=== PATIENT | female | born 1980 | race Caucasian/White ===

== ENCOUNTER 2018-09-22 23:48 | Inpatient (IN) | payer MEDICAID ==
[2018-09-23 03:06] VITALS: BP 126/87
[2018-09-23] MEDS ORDERED: PETROLATUM,WHITE 28 GM JELLY TP PRN (04:30)
[2018-09-23] MEDS ORDERED: LOPERAMIDE HCL 2 MG CAPSULE PO PRN (04:30)
[2018-09-23] MEDS ORDERED: ONDANSETRON HCL 4 MG TABLET PO PRN (04:30)
[2018-09-23] MEDS ORDERED: ALBUTEROL SULFATE HFA 90 MCG/PUFF 8 GM INHALER IH PRN (04:30)
[2018-09-23] MEDS ORDERED: GuaiFENesin/D-METHORPHAN [SUGAR-FREE] 200-20MG/10 ML SYRUP UDCUP PO PRN (04:30)
[2018-09-23] MEDS ORDERED: CloNIDine HCL 0.1 MG TABLET PO PRN (04:30)
[2018-09-23] MEDS ORDERED: DOCUSATE SODIUM 100 MG CAPSULE PO PRN (04:30)
[2018-09-23] MEDS ORDERED: MAGNESIUM HYDROXIDE SUSPENSION 30 ML UDCUP PO PRN (04:30)
[2018-09-23] MEDS ORDERED: MAG HYDROX/AL HYDROX/SIMETH ES 30 ML SUSPENSION UDCUP PO PRN (04:30)
[2018-09-23 08:33] VITALS: BP 110/60
[2018-09-23 08:37] LABS: BASOPHILS % (AUTO) 1.4 % (0.0-2.0); HEMATOCRIT 33.6 % (36-46); HEMOGLOBIN 11.3 g/dL (12.0-16.0); LYMPHOCYTES % (AUTO) 31.5 % (22.0-44.0); MEAN CORPUSCULAR HEMOGLOBIN 32.5 pg (26.0-34.0); MEAN CORPUSCULAR HGB CONC 33.5 G/dL (31.0-37.0); MEAN CORPUSCULAR VOLUME 97 fL (80-100); MONOCYTES # (AUTO) 0.5 K/uL (0.1-1.0); MONOCYTES % (AUTO) 8.2 % (2.0-9.0); NEUTROPHILS # (AUTO) 3.6 K/uL (1.8-7.7); NEUTROPHILS % (AUTO) 56.9 % (40.0-70.0); PLATELET COUNT (AUTO) 235 K/uL (150-450); RED BLOOD CELL COUNT(AUTO) 3.46 MIL/uL (4.00-5.20); RED CELL DISTRIBUTION WIDTH 13.1 % (11.5-14.5)
[2018-09-23 08:49] LABS: HEMOGLOBIN A1C 5.5 % (4.5-6.2)
[2018-09-23] MEDS: SULFAMETHOX/TRIMETH DS 800-160 MG/TABLET PO SCH ×2 (08:54→16:40)
[2018-09-23] MEDS: CEPHALEXIN MONOHYDRATE 500 MG CAPSULE PO SCH ×4 (08:55→20:48)
[2018-09-23] MEDS ORDERED: CEPH500 PO ×2 (09:00→11:30)
[2018-09-23] MEDS ORDERED: BACTDSB PO (09:00)
[2018-09-23 09:04] LABS: ANION GAP 7 mmol/L (8-16); CARBON DIOXIDE 27 mmol/L (22-29); CHLORIDE 109 mmol/L (98-107); CREATININE 0.71 mg/dL (0.60-1.30); GLUCOSE,RANDOM 81 mg/dL (70-110); POTASSIUM 4.2 mmol/L (3.5-5.1); SODIUM SERUM 143 mmol/L (136-145); UREA NITROGEN, BLOOD 11 mg/dL (7-18)
[2018-09-23 09:05] LABS: ALANINE AMINOTRANSFERASE 21 U/L (12-78); ALBUMIN 3.1 g/dL (3.4-5.0); ALKALINE PHOSPHATASE 49 U/L (46-116); ASPARTATE AMINOTRANSFERASE 20 U/L (15-37); BILIRUBIN,TOTAL 0.3 mg/dL (0.1-1.0); CALCIUM, TOTAL 8.6 mg/dL (8.8-10.5); CHOL/HDL RATIO 2.9 (3.9-5.7); CHOLESTEROL 169 mg/dL (131-200); FREE T4 (FREE THYROXINE) 0.79 ng/dL (0.76-1.46); GLOMERULAR FILTR. RATE CALC > 60 mL/min (>60); HCG,QUANTITATIVE 4 mIU/mL (0-6); HDL CHOLESTEROL 59 mg/dL (40-60); LDL CHOL (CALC.) 97 mg/dL (0-130); THYROID STIMULATING HORMONE 1.73 uIU/mL (0.36-3.74); TOTAL PROTEIN, SERUM 5.5 g/dL (6.4-8.2); TRIGLYCERIDES 65 mg/dL (15-150)
[2018-09-23] MEDS: LORazepam 2 MG TABLET PO PRN ×2 (09:18→17:58)
[2018-09-23] MEDS ORDERED: SULF1TAB42 PO (11:30)
[2018-09-23 16:19] VITALS: BP 134/70
[2018-09-23] MEDS: IBUPROFEN 400 MG TABLET PO PRN (17:58)
[2018-09-23] MEDS: NICOTINE 14 MG/24 HOUR PATCH TD PRN (18:01)
[2018-09-23 18:02] VITALS: BP 123/84
[2018-09-23] MEDS ORDERED: OLANZapine 5 MG TABLET PO SCH (21:00)
[2018-09-24 00:14] VITALS: BP 119/80
[2018-09-24] MEDS: LORazepam 2 MG TABLET PO PRN ×2 (07:14→17:02)
[2018-09-24 08:11] VITALS: BP 140/98
[2018-09-24] MEDS: SULFAMETHOX/TRIMETH DS 800-160 MG/TABLET PO SCH ×2 (08:58→16:47)
[2018-09-24] MEDS: QUEtiapine FUMARATE 100 MG TABLET PO PRN (08:58)
[2018-09-24] MEDS: CEPHALEXIN MONOHYDRATE 500 MG CAPSULE PO SCH ×4 (08:58→20:44)
[2018-09-24] MEDS ORDERED: FLUoxetine HCL 20 MG CAPSULE PO SCH (09:00)
[2018-09-24] MEDS ORDERED: QUET100T PO (10:28)
[2018-09-24 16:00] VITALS: BP 115/69
[2018-09-24] MEDS: OLANZapine 10 MG TABLET PO SCH (20:44)
[2018-09-25 00:07] VITALS: BP 125/78
[2018-09-25 03:33] VITALS: BP 122/91
[2018-09-25] MEDS: LORazepam 2 MG TABLET PO PRN (03:36)
[2018-09-25] MEDS ORDERED: LORazepam 2 MG/ML VIAL ONE (07:58)
[2018-09-25] MEDS ORDERED: DiphenhydrAMINE HCL 50 MG/ML VIAL ONE (07:58)
[2018-09-25] MEDS ORDERED: HALOPERIDOL LACTATE 5 MG/ML VIAL ONE (07:58)
[2018-09-25] MEDS ORDERED: LORazepam 2 MG/ML VIAL IM ONE (08:15)
[2018-09-25] MEDS ORDERED: HALOPERIDOL LACTATE 5 MG/ML VIAL IM ONE (08:15)
[2018-09-25] MEDS ORDERED: DiphenhydrAMINE HCL 50 MG/ML VIAL IM ONE (08:15)
[2018-09-25] MEDS: CEPHALEXIN MONOHYDRATE 500 MG CAPSULE PO SCH ×4 (08:20→20:35)
[2018-09-25] MEDS: FLUoxetine HCL 20 MG CAPSULE PO SCH (08:21)
[2018-09-25] MEDS: SULFAMETHOX/TRIMETH DS 800-160 MG/TABLET PO SCH ×2 (08:21→17:05)
[2018-09-25 08:22] VITALS: BP 132/88
[2018-09-25 08:55] LABS: APPEARANCE,URINE CLEAR (CLEAR); BILIRUBIN,URINE NEGATIVE (NEGATIVE); GLUCOSE, URINE (UA) NEGATIVE (NEGATIVE); KETONES,URINE NEGATIVE (NEGATIVE); LEUKOCYTE ESTERASE ,URINE NEGATIVE (NEGATIVE); NITRATE,URINE NEGATIVE (NEGATIVE); OCCULT BLOOD,URINE NEGATIVE (NEGATIVE); PH,URINE 5.5 (5.0-8.0); PROTEIN,URINE NEGATIVE (NEGATIVE); UROBILINOGEN,URINE 0.2 mg/dL (<=1.0)
[2018-09-25] MEDS: OLANZapine 5 MG TABLET PO SCH (12:28)
[2018-09-25] MEDS: QUEtiapine FUMARATE 100 MG TABLET PO PRN (14:47)
[2018-09-25 16:22] VITALS: BP 120/80
[2018-09-25] MEDS: OLANZapine 10 MG TABLET PO SCH (20:35)
[2018-09-26 00:04] VITALS: BP 111/79
[2018-09-26 06:21] VITALS: BP 138/90
[2018-09-26] MEDS: LORazepam 2 MG TABLET PO PRN ×2 (06:28→17:50)
[2018-09-26] MEDS: ACETAMINOPHEN 325 MG TABLET PO PRN (06:29)
[2018-09-26 08:19] LABS: AMPHET/METH SCREEN,URINE NEGATIVE (NEGATIVE); BARBITURATE SCREEN, URINE NEGATIVE (NEGATIVE); BENZODIAZEPINES SCREEN,URINE NEGATIVE (NEGATIVE); CANNABINOID SCREEN,URINE NEGATIVE (NEGATIVE); COCAINE SCREEN,URINE NEGATIVE (NEGATIVE); METHADONE SCREEN, URINE NEGATIVE (NEGATIVE); OPIATE SCREEN,URINE NEGATIVE (NEGATIVE); PHENCYCLIDINE SCREEN,URINE NEGATIVE (NEGATIVE)
[2018-09-26] MEDS: FLUoxetine HCL 20 MG CAPSULE PO SCH (08:25)
[2018-09-26] MEDS: SULFAMETHOX/TRIMETH DS 800-160 MG/TABLET PO SCH ×2 (08:25→16:46)
[2018-09-26] MEDS: CEPHALEXIN MONOHYDRATE 500 MG CAPSULE PO SCH ×4 (08:25→20:44)
[2018-09-26] MEDS: OLANZapine 5 MG TABLET PO SCH (08:25)
[2018-09-26 08:35] VITALS: BP 139/99
[2018-09-26] MEDS: NICOTINE 14 MG/24 HOUR PATCH TD PRN (08:43)
[2018-09-26 16:38] VITALS: BP 123/92
[2018-09-26] MEDS: OLANZapine 10 MG TABLET PO SCH (20:44)
[2018-09-26] MEDS: ZOLPIDEM TARTRATE 10 MG TABLET PO PRN (21:16)
[2018-09-27 00:37] VITALS: BP 121/86
[2018-09-27] MEDS: LORazepam 2 MG TABLET PO PRN ×4 (03:44→18:41)
[2018-09-27] MEDS: NICOTINE 14 MG/24 HOUR PATCH TD PRN (08:03)
[2018-09-27] MEDS: SULFAMETHOX/TRIMETH DS 800-160 MG/TABLET PO SCH ×2 (08:05→17:02)
[2018-09-27] MEDS: OLANZapine 5 MG TABLET PO SCH (08:05)
[2018-09-27] MEDS: CEPHALEXIN MONOHYDRATE 500 MG CAPSULE PO SCH ×4 (08:05→20:31)
[2018-09-27] MEDS: FLUoxetine HCL 20 MG CAPSULE PO SCH (08:05)
[2018-09-27 08:50] VITALS: BP 128/99
[2018-09-27] MEDS: QUEtiapine FUMARATE 100 MG TABLET PO PRN ×2 (09:35→19:51)
[2018-09-27 16:38] VITALS: BP 110/78
[2018-09-27 17:55] VITALS: BP 114/77
[2018-09-27] MEDS: ACETAMINOPHEN 325 MG TABLET PO PRN (17:59)
[2018-09-27 18:40] VITALS: BP 130/87
[2018-09-27] MEDS: IBUPROFEN 400 MG TABLET PO PRN (18:41)
[2018-09-27] MEDS: OLANZapine 10 MG TABLET PO SCH (20:31)
[2018-09-27] MEDS: ZOLPIDEM TARTRATE 10 MG TABLET PO PRN (20:50)
[2018-09-28 01:35] VITALS: BP 122/82
[2018-09-28] MEDS ORDERED: FLUO-191 PO (08:02)
[2018-09-28] MEDS ORDERED: OLAN10TA3 PO (08:02)
[2018-09-28] MEDS: FLUoxetine HCL 20 MG CAPSULE PO SCH (08:13)
[2018-09-28] MEDS: CEPHALEXIN MONOHYDRATE 500 MG CAPSULE PO SCH ×4 (08:13→20:04)
[2018-09-28] MEDS: LORazepam 2 MG TABLET PO PRN ×2 (08:14→17:32)
[2018-09-28] MEDS: NICOTINE 14 MG/24 HOUR PATCH TD PRN (08:15)
[2018-09-28 08:53] VITALS: BP 138/87
[2018-09-28] MEDS: SULFAMETHOX/TRIMETH DS 800-160 MG/TABLET PO SCH ×2 (09:35→17:29)
[2018-09-28] MEDS: OLANZapine 10 MG TABLET PO SCH ×2 (09:35→20:04)
[2018-09-28 16:00] VITALS: BP 119/79
[2018-09-28] MEDS: QUEtiapine FUMARATE 100 MG TABLET PO PRN (18:07)
[2018-09-28 20:04] VITALS: BP 124/78
[2018-09-28] MEDS: ACETAMINOPHEN 325 MG TABLET PO PRN (20:04)
[2018-09-28] MEDS: ZOLPIDEM TARTRATE 10 MG TABLET PO PRN (21:11)
[2018-09-29 06:58] VITALS: BP 120/81
[2018-09-29 08:22] VITALS: BP 130/77
[2018-09-29] MEDS: FLUoxetine HCL 20 MG CAPSULE PO SCH (09:48)
[2018-09-29] MEDS: SULFAMETHOX/TRIMETH DS 800-160 MG/TABLET PO SCH ×2 (09:48→17:01)
[2018-09-29] MEDS: OLANZapine 10 MG TABLET PO SCH ×2 (09:48→21:24)
[2018-09-29] MEDS: CEPHALEXIN MONOHYDRATE 500 MG CAPSULE PO SCH ×4 (09:48→21:24)
[2018-09-29] MEDS: QUEtiapine FUMARATE 100 MG TABLET PO PRN ×3 (09:48→17:34)
[2018-09-29] MEDS: LORazepam 2 MG TABLET PO PRN ×3 (09:48→17:34)
[2018-09-29 16:13] VITALS: BP 111/70
[2018-09-29] MEDS: ZOLPIDEM TARTRATE 10 MG TABLET PO PRN (21:24)
[2018-09-30 04:59] VITALS: BP 140/74
[2018-09-30] MEDS: LORazepam 2 MG TABLET PO PRN ×3 (08:26→18:06)
[2018-09-30] MEDS: QUEtiapine FUMARATE 100 MG TABLET PO PRN ×2 (08:26→13:33)
[2018-09-30] MEDS: FLUoxetine HCL 20 MG CAPSULE PO SCH (08:26)
[2018-09-30] MEDS: SULFAMETHOX/TRIMETH DS 800-160 MG/TABLET PO SCH ×2 (08:27→17:08)
[2018-09-30] MEDS: OLANZapine 10 MG TABLET PO SCH ×2 (08:27→21:04)
[2018-09-30 08:30] VITALS: BP 115/81
[2018-09-30] MEDS: CEPHALEXIN MONOHYDRATE 500 MG CAPSULE PO SCH ×4 (09:00→21:05)
[2018-09-30 16:14] VITALS: BP 120/74
[2018-09-30] MEDS: ZOLPIDEM TARTRATE 10 MG TABLET PO PRN (21:15)
[2018-10-01] MEDS: QUEtiapine FUMARATE 100 MG TABLET PO PRN ×3 (01:33→18:01)
[2018-10-01] MEDS: LORazepam 2 MG TABLET PO PRN ×3 (01:33→16:36)
[2018-10-01 01:40] VITALS: BP 119/74
[2018-10-01] MEDS: NICOTINE 14 MG/24 HOUR PATCH TD PRN (08:05)
[2018-10-01 08:31] VITALS: BP 118/75
[2018-10-01] MEDS: CEPHALEXIN MONOHYDRATE 500 MG CAPSULE PO SCH ×4 (09:11→20:12)
[2018-10-01] MEDS: FLUoxetine HCL 20 MG CAPSULE PO SCH (09:11)
[2018-10-01] MEDS: OLANZapine 10 MG TABLET PO SCH ×2 (09:11→20:12)
[2018-10-01] MEDS: SULFAMETHOX/TRIMETH DS 800-160 MG/TABLET PO SCH ×2 (09:11→17:12)
[2018-10-01] MEDS: HydrOXYzine PAMOATE 25 MG CAPSULE PO SCH ×3 (13:38→20:12)
[2018-10-01 16:15] VITALS: BP_SYST 121
[2018-10-01] MEDS ORDERED: HYDR50CA10 PO (21:26)
[2018-10-02 00:24] VITALS: BP 111/69
[2018-10-02 03:20] VITALS: BP 108/84
[2018-10-02] MEDS: ZOLPIDEM TARTRATE 10 MG TABLET PO PRN (03:40)
[2018-10-02] MEDS: SULFAMETHOX/TRIMETH DS 800-160 MG/TABLET PO SCH (07:57)
[2018-10-02] MEDS: CEPHALEXIN MONOHYDRATE 500 MG CAPSULE PO SCH (07:57)
[2018-10-02] MEDS: NICOTINE 14 MG/24 HOUR PATCH TD PRN (07:57)
[2018-10-02] MEDS: OLANZapine 10 MG TABLET PO SCH (07:58)
[2018-10-02] MEDS: HydrOXYzine PAMOATE 25 MG CAPSULE PO SCH (07:58)
[2018-10-02] MEDS: FLUoxetine HCL 20 MG CAPSULE PO SCH (07:58)
== END 2018-10-02 08:00 | disposition home or self-care (01) | DRG 753 ==
LOC: B2X 09-23 02:17
PROVIDERS: ADMIT Psychiatry & Neurology Psychiatry; ATTEND Psychiatry & Neurology Psychiatry
DX: F31.4 Bipolar disorder, current episode depressed, severe, without psychotic features (principal); R45.851 Suicidal ideations; E88.09 Other disorders of plasma-protein metabolism, not elsewhere classified; F29 Unspecified psychosis not due to a substance or known physiological condition; R45.87 Impulsiveness; D64.9 Anemia, unspecified; F10.10 Alcohol abuse, uncomplicated; Y90.9 Presence of alcohol in blood, level not specified; E87.6 Hypokalemia; F19.10 Other psychoactive substance abuse, uncomplicated; F41.0 Panic disorder [episodic paroxysmal anxiety]; F15.90 Other stimulant use, unspecified, uncomplicated; Z59.0 Homelessness; Z79.899 Other long term (current) drug therapy
CPT/HCPCS: 80307; 83036; 84439; 84443; 87081; J1200; J1630; J2060

== ENCOUNTER 2018-10-04 17:40 | Inpatient (IN) | payer MEDICAID ==
[~2018-10-04] VITALS: Ht 170.2 cm; Wt 64.0 kg
[~2018-10-04 17:40] MED LIST: CEPH500 PO; FLUO-191 PO; HYDR50CA10 PO; OLAN10TA3 PO; SULF1TAB42 PO
[2018-10-04 18:36] LABS: BASOPHILS % (AUTO) 1.1 % (0.0-2.0); EOSINOPHILS % (AUTO) 2.4 % (1.0-6.0); HEMATOCRIT 35.5 % (36-46); HEMOGLOBIN 12.1 g/dL (12.0-16.0); LYMPHOCYTES # (AUTO) 2.9 K/uL (1.0-4.8); LYMPHOCYTES % (AUTO) 37.5 % (22.0-44.0); MEAN CORPUSCULAR HEMOGLOBIN 32.1 pg (26.0-34.0); MEAN CORPUSCULAR HGB CONC 34.1 G/dL (31.0-37.0); MEAN CORPUSCULAR VOLUME 94 fL (80-100); MONOCYTES # (AUTO) 0.8 K/uL (0.1-1.0); MONOCYTES % (AUTO) 10.8 % (2.0-9.0); NEUTROPHILS # (AUTO) 3.7 K/uL (1.8-7.7); NEUTROPHILS % (AUTO) 48.2 % (40.0-70.0); PLATELET COUNT (AUTO) 258 K/uL (150-450); RED BLOOD CELL COUNT(AUTO) 3.76 MIL/uL (4.00-5.20); RED CELL DISTRIBUTION WIDTH 12.7 % (11.5-14.5)
[2018-10-04 18:45] LABS: ANION GAP 11 mmol/L (8-16); CARBON DIOXIDE 25 mmol/L (22-29); CHLORIDE 100 mmol/L (98-107); CREATININE 0.83 mg/dL (0.60-1.30); GLOMERULAR FILTR. RATE CALC > 60 mL/min (>60); GLUCOSE,RANDOM 81 mg/dL (70-110); POTASSIUM 4.1 mmol/L (3.5-5.1); SODIUM SERUM 136 mmol/L (136-145); UREA NITROGEN, BLOOD 16 mg/dL (7-18)
[2018-10-04 18:47] LABS: AMPHET/METH SCREEN,URINE NEGATIVE (NEGATIVE); BARBITURATE SCREEN, URINE NEGATIVE (NEGATIVE); BENZODIAZEPINES SCREEN,URINE NEGATIVE (NEGATIVE); CANNABINOID SCREEN,URINE NEGATIVE (NEGATIVE); COCAINE SCREEN,URINE NEGATIVE (NEGATIVE); METHADONE SCREEN, URINE NEGATIVE (NEGATIVE); OPIATE SCREEN,URINE NEGATIVE (NEGATIVE); PHENCYCLIDINE SCREEN,URINE NEGATIVE (NEGATIVE)
[2018-10-04 18:51] LABS: ALANINE AMINOTRANSFERASE 28 U/L (12-78); ALBUMIN 3.9 g/dL (3.4-5.0); ALKALINE PHOSPHATASE 63 U/L (46-116); ASPARTATE AMINOTRANSFERASE 20 U/L (15-37); BILIRUBIN,TOTAL 0.2 mg/dL (0.1-1.0); TOTAL PROTEIN, SERUM 7.3 g/dL (6.4-8.2)
[2018-10-04] MEDS ORDERED: OLANZapine 5 MG TABLET PO ONE (19:30)
[2018-10-04] MEDS ORDERED: LORazepam 2 MG TABLET PO ONE (19:30)
[2018-10-04] MEDS ORDERED: ZOLPIDEM TARTRATE 10 MG TABLET PO PRN (19:45)
[2018-10-04] MEDS ORDERED: HALOPERIDOL 5 MG TABLET PO PRN (19:45)
[2018-10-04] MEDS: OLANZapine 5 MG TABLET PO SCH (21:15)
[2018-10-04] MEDS: HydrOXYzine PAMOATE 50 MG CAPSULE PO SCH (21:15)
[2018-10-05 00:46] LABS: APPEARANCE,URINE CLEAR (CLEAR); BILIRUBIN,URINE NEGATIVE (NEGATIVE); GLUCOSE, URINE (UA) NEGATIVE (NEGATIVE); KETONES,URINE NEGATIVE (NEGATIVE); LEUKOCYTE ESTERASE ,URINE TRACE (NEGATIVE); NITRATE,URINE NEGATIVE (NEGATIVE); OCCULT BLOOD,URINE NEGATIVE (NEGATIVE); PROTEIN,URINE NEGATIVE (NEGATIVE); UROBILINOGEN,URINE 0.2 mg/dL (<=1.0)
[2018-10-05 01:00] LABS: BACTERIA,URINE None Seen /HPF (None Seen); RBC,URINE None Seen /HPF (0-2); SQUAMOUS EPITHELIAL CELL,UR Rare /LPF (None Seen)
[2018-10-05 01:25] VITALS: BP 124/70
[2018-10-05] MEDS ORDERED: ALBUTEROL SULFATE HFA 90 MCG/PUFF 8 GM INHALER IH PRN (02:15)
[2018-10-05] MEDS ORDERED: DOCUSATE SODIUM 100 MG CAPSULE PO PRN (02:15)
[2018-10-05] MEDS ORDERED: GuaiFENesin/D-METHORPHAN [SUGAR-FREE] 200-20MG/10 ML SYRUP UDCUP PO PRN (02:15)
[2018-10-05] MEDS ORDERED: IBUPROFEN 400 MG TABLET PO PRN (02:15)
[2018-10-05] MEDS ORDERED: ACETAMINOPHEN 325 MG TABLET PO PRN (02:15)
[2018-10-05] MEDS ORDERED: ONDANSETRON HCL 4 MG TABLET PO PRN (02:15)
[2018-10-05] MEDS ORDERED: LOPERAMIDE HCL 2 MG CAPSULE PO PRN (02:15)
[2018-10-05] MEDS ORDERED: MAG HYDROX/AL HYDROX/SIMETH ES 30 ML SUSPENSION UDCUP PO PRN (02:15)
[2018-10-05] MEDS ORDERED: PETROLATUM,WHITE 28 GM JELLY TP PRN (02:15)
[2018-10-05] MEDS ORDERED: MAGNESIUM HYDROXIDE SUSPENSION 30 ML UDCUP PO PRN (02:15)
[2018-10-05] MEDS ORDERED: CloNIDine HCL 0.1 MG TABLET PO PRN (02:15)
[2018-10-05 07:53] LABS: CHOL/HDL RATIO 3.4 (3.9-5.7)
[2018-10-05 08:08] VITALS: BP 126/75
[2018-10-05] MEDS ORDERED: OLANZapine 10 MG TABLET PO SCH (09:00)
[2018-10-05] MEDS: FLUoxetine HCL 20 MG CAPSULE PO SCH (09:21)
[2018-10-05] MEDS: HydrOXYzine PAMOATE 50 MG CAPSULE PO SCH ×3 (09:21→20:09)
[2018-10-05] MEDS: OLANZapine 5 MG TABLET PO SCH (09:21)
[2018-10-05 16:10] VITALS: BP 105/65
[2018-10-05] MEDS: NICOTINE 14 MG/24 HOUR PATCH TD PRN (16:20)
[2018-10-05] MEDS: OLANZapine 10 MG TABLET PO SCH (16:20)
[2018-10-05] MEDS: LORazepam 2 MG TABLET PO PRN (16:37)
[2018-10-06 01:32] VITALS: BP 108/72
[2018-10-06] MEDS: LORazepam 2 MG TABLET PO PRN ×3 (03:20→17:21)
[2018-10-06 08:07] VITALS: BP 131/87
[2018-10-06] MEDS: HydrOXYzine PAMOATE 50 MG CAPSULE PO SCH ×3 (08:17→20:19)
[2018-10-06] MEDS: FLUoxetine HCL 20 MG CAPSULE PO SCH (08:17)
[2018-10-06] MEDS: OLANZapine 10 MG TABLET PO SCH ×2 (08:17→16:03)
[2018-10-06 08:26] LABS: EOSINOPHILS % (AUTO) 3.1 % (1.0-6.0); HEMATOCRIT 39.4 % (36-46); LYMPHOCYTES # (AUTO) 2.2 K/uL (1.0-4.8); LYMPHOCYTES % (AUTO) 33.9 % (22.0-44.0); MEAN CORPUSCULAR HEMOGLOBIN 31.7 pg (26.0-34.0); MEAN CORPUSCULAR HGB CONC 33.1 G/dL (31.0-37.0); MEAN CORPUSCULAR VOLUME 96 fL (80-100); MONOCYTES # (AUTO) 0.6 K/uL (0.1-1.0); MONOCYTES % (AUTO) 9.1 % (2.0-9.0); NEUTROPHILS # (AUTO) 3.4 K/uL (1.8-7.7); NEUTROPHILS % (AUTO) 52.9 % (40.0-70.0); PLATELET COUNT (AUTO) 247 K/uL (150-450); RED BLOOD CELL COUNT(AUTO) 4.11 MIL/uL (4.00-5.20); RED CELL DISTRIBUTION WIDTH 13.1 % (11.5-14.5)
[2018-10-06 08:43] LABS: HEMOGLOBIN A1C 5.4 % (4.5-6.2)
[2018-10-06 09:09] LABS: ALANINE AMINOTRANSFERASE 25 U/L (12-78); ALBUMIN 3.7 g/dL (3.4-5.0); ALKALINE PHOSPHATASE 56 U/L (46-116); ANION GAP 7 mmol/L (8-16); ASPARTATE AMINOTRANSFERASE 21 U/L (15-37); BILIRUBIN,TOTAL 0.4 mg/dL (0.1-1.0); CALCIUM, TOTAL 9.2 mg/dL (8.8-10.5); CARBON DIOXIDE 29 mmol/L (22-29); CHLORIDE 103 mmol/L (98-107); CREATININE 0.61 mg/dL (0.60-1.30); GLOMERULAR FILTR. RATE CALC > 60 mL/min (>60); GLUCOSE,RANDOM 79 mg/dL (70-110); POTASSIUM 4.7 mmol/L (3.5-5.1); SODIUM SERUM 139 mmol/L (136-145); THYROID STIMULATING HORMONE 1.39 uIU/mL (0.36-3.74); TOTAL PROTEIN, SERUM 6.9 g/dL (6.4-8.2); UREA NITROGEN, BLOOD 13 mg/dL (7-18)
[2018-10-06 16:17] VITALS: BP 110/72
[2018-10-06 23:51] VITALS: BP 121/80
[2018-10-07 00:39] VITALS: BP 121/80
[2018-10-07] MEDS: HydrOXYzine PAMOATE 50 MG CAPSULE PO SCH (08:09)
[2018-10-07] MEDS: FLUoxetine HCL 20 MG CAPSULE PO SCH (08:09)
[2018-10-07] MEDS: OLANZapine 10 MG TABLET PO SCH (08:09)
[2018-10-07 08:11] VITALS: BP 153/94
[2018-10-07] MEDS: NICOTINE 14 MG/24 HOUR PATCH TD PRN (09:21)
== END 2018-10-07 15:25 | disposition home or self-care (01) | DRG 753 ==
LOC: EMS 17:42 → B2S 23:00
PROVIDERS: ADMIT Psychiatry & Neurology Psychiatry; ATTEND Psychiatry & Neurology Psychiatry
DX: F31.4 Bipolar disorder, current episode depressed, severe, without psychotic features (principal); R45.851 Suicidal ideations; E88.09 Other disorders of plasma-protein metabolism, not elsewhere classified; F41.9 Anxiety disorder, unspecified; Z88.8 Allergy status to other drugs, medicaments and biological substances; Z91.5 Personal history of self-harm; Z90.710 Acquired absence of both cervix and uterus; F10.10 Alcohol abuse, uncomplicated; F20.9 Schizophrenia, unspecified; Z87.891 Personal history of nicotine dependence; F12.90 Cannabis use, unspecified, uncomplicated; Z71.41 Alcohol abuse counseling and surveillance of alcoholic; Z71.51 Drug abuse counseling and surveillance of drug abuser; F19.10 Other psychoactive substance abuse, uncomplicated
CPT/HCPCS: 83036; 84443; 87081; G0480